=== PATIENT | female | born 1995 | race Caucasian/White ===

== ENCOUNTER 2017-09-18 09:59 | Emergency (ER) | payer MEDICAID ==
[~2017-09-18] VITALS: Ht 165.1 cm; Wt 105.2 kg
[2017-09-18 10:00] VITALS: BP_SYST 128
--- NOTE | 2017-09-18 10:00 | NUR ---
BROUGHT BACK TO BED #6 AND TRIAGED.REPORT GIVEN TO MARGARET
--- NOTE | 2017-09-18 10:10 | NUR ---
Pt presents to ED c/o L flank pain and sinus pain. Pt reports dysuria and frequency. Pt has no acute distress noted at this time.
--- NOTE | 2017-09-18 10:15 | NUR ---
ER at bedside examining patient.
[2017-09-18] MEDS ORDERED: IBUPROFEN 600 MG TABLET PO ONE (10:45)
--- NOTE | 2017-09-18 11:00 | NUR ---
Urine specimen collected and sent to lab.
[2017-09-18 11:23] LABS: BILIRUBIN,URINE NEGATIVE (NEGATIVE); BLOOD, URINE 2+ (NEGATIVE); CLARITY/URINE SL HAZY (CLEAR); COLOR,URINE YELLOW (YELLOW); GLUCOSE,URINE NEGATIVE (NEGATIVE); KETONES,URINE NEGATIVE (NEGATIVE); LEUKOCYTE ESTERASE ,URINE 2+ (NEGATIVE); NITRITE, URINE POSITIVE (NEGATIVE); PH,URINE 6.5 (5.0-8.0); PROTEIN URINE 1+ (NEGATIVE)
[2017-09-18 11:32] LABS: BACTERIA,URINE MANY /HPF (None Seen); MUCUS,URINE 1+ /LPF (None Seen); WBC,URINE 20-50 /HPF (0-3)
[2017-09-18 11:39] VITALS: BP_SYST 121
--- NOTE | 2017-09-18 11:40 | NUR ---
Patient given written and verbal discharge instructions and verbalizes understanding. ER MD discussed with patient the results and treatment provided. Patient in stable condition. ID arm band removed. Rx of MUCINEX, BACTRIM, FLONASE, IBUPROFEN given. Patient educated on pain management and to follow up with PMD. Pain Scale 0/10. Opportunity for questions provided and answered.
== END 2017-09-18 11:40 | disposition home or self-care (01) ==
LOC: SED 09:59
DX: J32.9 Chronic sinusitis, unspecified (principal); N39.0 Urinary tract infection, site not specified; F43.10 Post-traumatic stress disorder, unspecified; F32.9 Major depressive disorder, single episode, unspecified; F41.9 Anxiety disorder, unspecified; J45.909 Unspecified asthma, uncomplicated
CPT/HCPCS: 81000-TC; 81025; 87086; 87186-TC; 99284